=== PATIENT | male | born 1990 | race Caucasian/White ===

== ENCOUNTER 2020-02-07 05:40 | Day surgery (SDC) | payer OTHER ==
[~2020-02-07] VITALS: Ht 170.2 cm; Wt 65.8 kg
[2020-02-07] MEDS ORDERED: MOTRIN600 MG (06:42)
[2020-02-07] MEDS ORDERED: ULTRAM50 MG PO (06:42)
[2020-02-07 06:49] VITALS: BP 103/66; Ht 170.2 cm; Wt 65.8 kg
[2020-02-07] MEDS ORDERED: HYDROCODON-ACE1 EA10 PO (09:08)
--- NOTE | 2020-02-12 14:56 | OP ---
PATIENT NAME: GRICELDA DAS MEDICAL RECORD: [id number] :88 LOCATION:[facility] ADMISSION DATE: SURGEON: NELDA CRUZ MD DATE OF OPERATION: 02/07/2020 PREOPERATIVE DIAGNOSIS: Chronic nonunion of the left ulna. POSTOPERATIVE DIAGNOSIS: Chronic nonunion of the left ulna. PROCEDURES: 1. Open reduction internal fixation of chronic ulnar nonunion. 2. Allograft bone grafting. SURGEON: Nelda Cruz MD DIRECTOR ERP: JOHNNY Gonzalez INTRAOPERATIVE COMPLICATIONS: None. SUMMARY OF PATHOLOGIC FINDINGS: The patient had a complete nonunion with fibrous interposition to across the entire fracture. This required complete takedown of compressive plating with 5 cc of BIO4 bone graft interposed. OPERATIVE SUMMARY IN DETAIL: After obtaining the appropriate preoperative orthopedic surgery consent as well as anesthetic consultation, evaluation and clearance, the patient was brought to the operating room and placed on table in supine position. After general laryngeal mask airway was administered, tourniquet was placed on the proximal aspect of the left upper extremity. Left upper extremity was then prepped and draped in routine sterile fashion. The arm was elevated and exsanguinated, tourniquet was inflated to 250 mmHg. An incision was made directly over the ulna, taken down until the level of the fracture was identified. Serial and sequential curettage as well as rongeur was utilized to completely devoid the fibrous nonunion of all fibrous elements. Curettage was then utilized to refresh in the bone ends. At this point, the thawed BIO4 was then placed in the fracture itself and then a 5-hole compression plate VariAx 2 from [employer] was placed under compressive tension under fluoroscopic guidance. Having completed this, wound was closed with #1 Vicryl, 2-0 Vicryl and skin wendy by JOHNNY Gonzalez. Sterile dressings were applied. A sugar-tong splint was applied. The patient was then awakened and taken to the recovery room in stable condition. All final needle and sponge counts were correct. TRANSINT:[id number] Voice Confirmation ID: [id number] DOCUMENT ID: [id number] NELDA CRUZ MD at 1456 CC: [id number] DICTATION DATE: 02/12/20 0934 [employer] PROFESSOR OF SOCIOLOGY: 02/12/20 1413 [facility] 02/07/20 [facility] [address] [place] [address]
== END 2020-02-07 11:00 | disposition home or self-care (01) ==
LOC: D.OPS 05:40
PROVIDERS: ATTEND Orthopaedic Surgery
DX: S52.202K Unspecified fracture of shaft of left ulna, subsequent encounter for closed fracture with nonunion (principal)

== ENCOUNTER → 2020-05-22 05:40 | Day surgery (SDC) | payer OTHER ==
[2020-02-07 06:49] VITALS: Ht 170.2 cm; Wt 65.8 kg
[~2020-05-22] VITALS: Ht 170.2 cm; Wt 65.8 kg
[~2020-05-22 05:40] MED LIST: HYDROCODON-ACE1 EA10 PO; MOTRIN600 MG; ULTRAM50 MG PO
--- NOTE | 2020-05-22 15:20 | NUR ---
0600-COVID TEST RESULTS RECEIVED POSITIVE. DR. CRUZ NOTIFIED. ORDER RECEIVED TO [facility]. PT. LEFT AMBULATORY WITH GUARDS AT SIDE.
== END | disposition home or self-care (01) ==
LOC: D.OPS 05:40
PROVIDERS: ATTEND Orthopaedic Surgery
DX: S52.202K Unspecified fracture of shaft of left ulna, subsequent encounter for closed fracture with nonunion (principal); Z53.8 Procedure and treatment not carried out for other reasons; U07.1 COVID-19